=== PATIENT | male | born 1950 | race Caucasian/White ===

== ENCOUNTER 2017-08-14 11:07 | Day surgery (SDC) | payer OTHER ==
[~2017-08-14] VITALS: Ht 175.3 cm; Wt 121.1 kg
[~2017-08-14 11:07] MED LIST: ADVIL,NUPRIN,M200 MG PO; COLACE CLEAR50 MG PO; FOLIC ACID1 MG PO; LIPITOR40 MG PO; LOSARTAN POTASS25 MG PO; NEURONTIN600 MG PO; THIAMINE HCL100 MG PO; TRAZODONE HCL50 MG PO; VITAMIN B-12500 MC5 PO; VITAMIN D31000 UNI2 PO
[2017-08-14 11:49] VITALS: BP 135/65
[2017-08-14 15:42] VITALS: BP 147/70
[2017-08-14 16:40] VITALS: BP 146/68
[2017-08-14 17:32] VITALS: BP 145/65
== END 2017-08-14 17:43 | disposition home or self-care (01) ==
LOC: SDC 11:07
PROC: 0JNJ0ZZ Release Right Hand Subcutaneous Tissue and Fascia, Open Approach (ICD-10-PCS; principal; 2017-08-14)
DX: M72.0 Palmar fascial fibromatosis [Dupuytren] (principal); I10 Essential (primary) hypertension; E78.00 Pure hypercholesterolemia, unspecified; E11.9 Type 2 diabetes mellitus without complications; G47.30 Sleep apnea, unspecified; F17.290 Nicotine dependence, other tobacco product, uncomplicated
CPT/HCPCS: 88304; J0690; J1885; J2250; J2405; J3010; S0020